=== PATIENT | male | born 1990 | race Caucasian/White ===

== ENCOUNTER 2022-05-05 12:47 | Emergency (ER) | payer OTHER ==
[~2022-05-05] VITALS: Ht 182.9 cm; Wt 99.8 kg
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
[2022-05-05] MEDS ORDERED: diphenhydrAMINE HCL 50 MG/ML VIAL ONE (13:00)
[2022-05-05] MEDS ORDERED: HALOPERIDOL LACTATE INJ 5 MG/ML VIAL IM ONE (13:00)
[2022-05-05] MEDS ORDERED: diphenhydrAMINE HCL 50 MG/ML VIAL IM ONE (13:00)
[2022-05-05] MEDS ORDERED: HALOPERIDOL LACTATE INJ 5 MG/ML VIAL ONE (13:00)
[2022-05-05] MEDS ORDERED: LORAZEPAM INJ 2 MG/ML VIAL IM ONE (13:00)
[2022-05-05] MEDS ORDERED: LORAZEPAM INJ 2 MG/ML VIAL ONE (13:01)
[2022-05-05 13:21] LABS: BASOPHILS # (AUTO) 0.1 K/uL (0.0-0.2); BASOPHILS % (AUTO) 0.8 % (0.0-2.0); HEMATOCRIT 37 % (39-51); HEMOGLOBIN 12.8 g/dL (13.5-17.5); LYMPHOCYTES % (AUTO) 24.4 % (20.0-44.0); MEAN CORPUSCULAR HGB CONC 34 g/dl (31.0-36.0); MEAN CORPUSCULAR VOLUME 88 fL (80-96); MONOCYTES # (AUTO) 1.2 K/uL (0.1-1.30); MONOCYTES % (AUTO) 14.6 % (2.0-12.0); NEUTROPHILS # (AUTO) 4.9 K/uL (1.8-8.9); NEUTROPHILS % (AUTO) 59.2 % (43.0-81.0); PLATELET COUNT (AUTO) 464 K/uL (150-450); RED BLOOD CELL COUNT(AUTO) 4.22 MIL/uL (4.5-6.0); WHITE BLOOD COUNT (AUTO) 8.2 K/uL (4.3-11.0)
[2022-05-05 13:27] LABS: CALCIUM, SERUM 8.8 mg/dL (8.5-10.1); CARBON DIOXIDE 27 mmol/L (21-32); CHLORIDE 100 mmol/L (98-107); GLUCOSE 78 mg/dL (74-106); POTASSIUM 3.8 mmol/L (3.5-5.1); SODIUM SERUM 136 mmol/L (136-145); UREA NITROGEN, BLOOD 18 mg/dL (7-18)
[2022-05-05 13:34] LABS: ALANINE AMINOTRANSFERASE 60 U/L (12-78); ALBUMIN 3.7 g/dL (3.4-5.0); ALCOHOL, BLOOD < 3 mg/dL (0-0); ALKALINE PHOSPHATASE 163 U/L (46-116); ASPARTATE AMINOTRANSFERASE 77 U/L (15-37); BILIRUBIN,DIRECT 0.1 mg/dL (0.0-0.2); BILIRUBIN,TOTAL 0.4 mg/dL (0.2-1.0); TOTAL PROTEIN, SERUM 7.4 g/dL (6.4-8.2)
[2022-05-05 13:49] LABS: ACETAMINOPHEN 0 ug/ml (10-30)
--- NOTE | 2022-05-05 13:51 | NUR ---
Natanael MCCLENDON [facility] escorted by [employer] [employer] [id number]
[2022-05-05 17:12] LABS: BILIRUBIN,URINE 1+ (NEGATIVE); COLOR,URINE YELLOW (YELLOW); LEUKOCYTE ESTERASE ,URINE NEGATIVE (NEGATIVE); NITRITE, URINE NEGATIVE (NEGATIVE); PH,URINE 5.5 (5.0-8.0); PROTEIN,URINE TRACE mg/dl (NEGATIVE); UGLUCOSE NEGATIVE (NEGATIVE); UROBILINOGEN,URINE 0.2 EU/dL (0.2)
[2022-05-05 17:29] LABS: BACTERIA,URINE RARE /HPF (None Seen); RBC,URINE 0-2 /HPF (0-2); WBC,URINE 0-2 /HPF (0-3)
--- NOTE | 2022-05-05 18:00 | NUR ---
Note undone in [facility] - 05/05/22 at 1807 by KEYSHA Patient discharged to home in stable condition. Written and verbal after care instructions given. Patient verbalizes understanding of instruction. Addendum: 05/05/22 at 1806 by KEYSHA Amendment undarmen in [facility] - 05/05/22 at 1807 by KEYSHA Patient discharged in stable condition.
--- NOTE | 2022-05-05 18:00 | NUR ---
PATIENT DISCHARGE IN A STABLE CONDITION.
--- NOTE | 2022-05-05 18:00 | NUR ---
David helton in [facility] - 05/05/22 at 1808 by KEYSHA PATIENT IS DISCHARGE IN A STABLE CONDITION.
[2022-05-05 18:09] VITALS: BP 130/65
== END 2022-05-05 18:00 | disposition home or self-care (01) ==
LOC: EDBD 12:47 → ER 12:47
DX: F23 Brief psychotic disorder (principal); R45.1 Restlessness and agitation
CPT/HCPCS: 99285; 96372 ×2; 85025; 80048; 80076; 81001; 36415; 80143; 80320; 80307; J2060; J1200; J1630; G0480